=== PATIENT | female | born 1980 | race Caucasian/White ===

== ENCOUNTER 2023-12-28 12:06 | Emergency (ER) | payer OTHER ==
[~2023-12-28] VITALS: Ht 170.2 cm; Wt 114.2 kg
[2023-12-28 12:38] VITALS: BP 126/62; PULSE 78; RESP 16; TEMP 98.3; O2SAT 98
== END 2023-12-28 13:16 | disposition home or self-care (01) ==
LOC: ER 12:06
DX: R51.9 Headache, unspecified (principal); T40.415A Adverse effect of fentanyl or fentanyl analogs, initial encounter; F41.9 Anxiety disorder, unspecified; Y92.69 Other specified industrial and construction area as the place of occurrence of the external cause